=== PATIENT | male | born 1985 ===

== ENCOUNTER 2020-10-16 19:30 | Emergency (ER) | payer OTHER ==
--- NOTE | 2020-10-16 19:55 | EDM.PDOC ---
ED HPI GENERAL MEDICAL PROBLEM - General Chief Complaint: Upper Extremity Injury/Pain Stated Complaint: crush injury Time Seen by Provider: 10/16/20 19:45 Source of Information: Reports: Patient History Limitations: Reports: No Limitations - History of Present Illness INITIAL COMMENTS - FREE TEXT/NARRATIVE: Smashed tip of left middle finger at work Increased pain and swelling in fingertip Increased pain with movement Tetanus UTD Onset: Today, Sudden Duration: Hour(s):, Getting Worse Location: Reports: Upper Extremity, Left Quality: Reports: Throbbing Severity: Moderate Context: Reports: Trauma Treatments MANAGER PROCESS IMPROVEMENT: Reports: Acetaminophen, Cold Therapy Left hand 3rd digit Pain Score (Numeric/FACES): 10 - Related Data Allergies Allergy/AdvReac Type Severity Reaction Status Date / Time No Known Allergies Allergy Verified 10/16/20 19:47 Home Meds: Home Meds . [No Known Home Meds] 10/16/20 [History] Social & Family History - Tobacco Use Tobacco Use Status *Q: Never Tobacco User Review of Systems - Review of Systems Review Of Systems: See Below Skin: Reports: Other (Left middle finger with crush injury) ED EXAM, GENERAL - Physical Exam Exam: See Below Exam Limited By: No Limitations General Appearance: Moderate Distress Extremities: Other (Left middle finger with swelling and ecchymosis to distal finger Limited ROM due to pain Neurovascular intact) Course - Vital Signs Last Recorded V/S: Last Vital Signs Temp 98.1 F 10/16/20 19:30 Pulse 78 10/16/20 19:30 Resp 18 10/16/20 19:30 BP 112/81 10/16/20 19:30 Pulse Ox 99 10/16/20 19:30 - Orders/Labs/Meds Orders: Active Orders 24 hr Category Date Time Status Fingers Third Digit Lt F2 [CR] Stat Exams 10/16/20 19:32 Ordered - Re-Assessments/Exams Free Text/Narrative Re-Assessment/Exam: 10/16/20 19:53 Xray: Fracture distal phalanges left middle finger Splint placed per nurse Departure - Departure Time of Disposition: 20:00 Disposition: Home, Self-Care 01 Clinical Impression: Finger fracture, left Qualifiers: Encounter type: initial encounter Finger: middle finger Fracture type: closed Phalanx: distal Fracture alignment: nondisplaced Qualified Code(s): S62.663A - Nondisplaced fracture of distal phalanx of left middle finger, initial encounter for closed fracture - Discharge Information *PRESCRIPTION DRUG MONITORING PROGRAM REVIEWED*: Not Applicable *COPY OF PRESCRIPTION DRUG MONITORING REPORT IN PATIENT JANEY: Not Applicable Instructions: Cast or Splint Care, Adult, [id number], Finger Fracture, Adult Referrals: PCP,None [Primary Care Provider] - Additional Instructions: Wear splint Rx Tylenol #3 One pill every 6 hours for pain Follow up in [facility] Sepsis Event Note (ED) - Evaluation Sepsis Screening Result: No Definite Risk - Focused Exam Vital Signs: Vital Signs Temp Pulse Resp BP Pulse Ox 10/16/20 19:30 98.1 F 78 18 112/81 99 - My Orders Last 24 Hours: My Active Orders 10/16/20 19:32 Fingers Third Digit Lt F2 [CR] Stat - Assessment/Plan Last 24 Hours: My Active Orders 10/16/20 19:32 Fingers Third Digit Lt F2 [CR] Stat
== END 2020-10-16 20:10 | disposition home or self-care (01) ==
LOC: LL.ED 19:30
DX: S62.663A Nondisplaced fracture of distal phalanx of left middle finger, initial encounter for closed fracture (principal); W23.0XXA Caught, crushed, jammed, or pinched between moving objects, initial encounter; Y99.0 Civilian activity done for income or pay
CPT/HCPCS: 73140-F2; 99283; 99283-25